=== PATIENT | male | born 1950 | race Caucasian/White ===

== ENCOUNTER 2017-07-21 08:53 | Emergency (ER) | payer BC, MEDICARE ==
[2017-07-21 09:22] VITALS: BP 143/101
--- NOTE | 2017-07-21 09:27 | UC ---
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 He states "I get coughing so hard, it makes me vomit, worse at night". Denies fever, ear pain, sinus congestion." -here with his . -has HTN, didnt take lisinirpil this AM -last took cold meds yesterday (adv to avoid). -denies actual fever -no COPD. no smoking hx. 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 gets sensitive to scents/smells. started allergy pill this summer that helped prolonged cough. -has had to use albuterol in past for bronchitis. not used this week - forgot about it. - History of Current Complaint Chief Complaint: UCRespiratory Stated Complaint: COUGH Time Seen by Provider: 07/21/17 09:03 - Allergies/Home Medications Allergies/Adverse Reactions: Allergies Allergy/AdvReac Type Severity Reaction Status Date / Time No Known Allergies Allergy Verified 07/21/17 09:23 Home Medications: Home Medications Fgkrtmehwot-Etabkfxqses-Abp C- [Glucosamine Chondroitin] 1 tab PO DAILY [History Confirmed 07/21/17] Misc Natural Products [Prostate Health] 1 cap PO DAILY 07/21/17 [History Confirmed 07/21/17] PMH/Surg Hx/FS Hx/Imm Hx Previously Healthy: Yes Cardiovascular History: Hypertension GI/ History: Gastroesophageal Reflux - Surgical History Surgical History: Yes Surgery Procedure, Year, and Place: tonsilectomy - Family History Known Family History: Positive: Hypertension, Diabetes - Social History Alcohol Use: None Substance Use Type: None Smoking Status (MU): Never Smoked Tobacco Review of Systems Constitutional: Fever, Fatigue Skin: Negative Eyes: Negative ENT: Negative, Other - voice hoarse Respiratory: Cough Cardiovascular: Negative Gastrointestinal: Negative Genitourinary: Negative Motor: Negative Neurovascular: Negative Musculoskeletal: Negative Neurological: Negative Psychological: Negative Is Patient Immunocompromised?: No All Other Systems Reviewed And Are Negative: Yes Physical Exam Triage Information Reviewed: Yes Appearance: Well-Appearing, No Pain Distress, Well-Nourished - moderate cough Vital Signs: Initial Vital Signs Temp 97.4 F 07/21/17 09:15 Pulse 94 07/21/17 09:15 Resp 16 07/21/17 09:15 BP 143/101 07/21/17 09:15 Pulse Ox 96 07/21/17 09:15 Vital Signs Reviewed: Yes Eye Exam: Normal ENT: Positive: Pharyngeal erythema - +PND, no exudate, TMs normal, Hoarse voice - mild. Negative: Nasal congestion, Tonsillar swelling, Sinus tenderness Neck exam: Normal Neck: Positive: Supple, Nontender, No Lymphadenopathy Respiratory: Positive: Chest non-tender, No respiratory distress, No accessory muscle use, Decreased breath sounds - mildly throughout, Wheezing - b/l exp.. Negative: Respiratory distress, Crackles, Rhonchi, Stridor Cardiovascular: Positive: RRR, No Murmur, Pulses Normal, Brisk Capillary Refill Abdomen Description: Positive: Nontender, Soft Musculoskeletal Exam: Normal Neurological Exam: Normal Psychological Exam: Normal Skin Exam: Normal UC Diagnostic Evaluation - Laboratory O2 Sat by Pulse Oximetry: 96 Respiratory Course/Dx - Course Course Of Treatment: CXR- small left basilar infiltrate - Differential Dx/Diagnosis Differential Diagnosis/HQI/PQRI: Asthma, Bronchitis, Sinusitis, Other - pneumonia Provider Diagnoses: pneumonia Discharge - Discharge Plan Condition: Stable Disposition: HOME Prescriptions: Albuterol HFA INHALER* [Ventolin HFA Inhaler*] 2 puff INH Q4H PRN 14 Days #1 mdi PRN Reason: Cough Amoxicillin/Clavulanate TAB* [Augmentin TAB 875*] 875 mg PO BID #20 tab Methylprednisolone [Medrol Dosepak 4 MG*] 4 mg PO DAILY #1 nba Patient Education Materials: Pneumonia (ED) Referrals: Shahzad Hubbard PA [Primary Care Provider] - 4 Days Additional Instructions: -Make sure to take a probiotic daily while on antibiotics to help prevent a potential complication of antibiotic use called c diff. Some well known brands that can be found OTC are florastor, Credorax and Tech Cocktail. Make sure to complete the entire prescription unless advised otherwise by your health care provider. -We discussed risks of prednisone including but not limited to anxiety, agitation, insomnia, GI upset, elevated blood pressures and blood sugar readings , adrenal crisis and avascular necrosis of the hip. -Make sure you get a repeat chest xray in 1 month to make sure that there is no underlying problem. -Drink plenty of fluids and get lots of rest. It will take you about 4-6 wks to feel back to baseline, however if your symptoms worsen or not improve, you should be re-evaluated. -This is contagious. Wash your hands well and avoid transmission of your respiratory droplets.
--- NOTE | 2017-07-21 10:16 | RAD ---
INDICATION: Cough for 6 days and wheezing. COMPARISON: There are no prior studies available for comparison. TECHNIQUE: Dual-energy PA and lateral views of the chest were obtained. FINDINGS: The heart is within normal limits in size. Mediastinal and hilar contours appear within normal limits. There is a small infiltrate at the left lung base. The right lung appears clear. No pleural effusion is seen. IMPRESSION: SMALL LEFT BASILAR INFILTRATE.
== END 2017-07-21 10:51 | disposition home or self-care (01) ==
LOC: UCCORT 08:53
DX: J18.9 Pneumonia, unspecified organism (principal); I10 Essential (primary) hypertension
CPT/HCPCS: 71046; 99202; G0463